=== PATIENT | female | born 1965 | race Caucasian/White ===

== ENCOUNTER → 2016-04-19 | Outpatient (CLI) | payer BC ==
[2016-04-19 10:05] LABS: CHLORIDE,CL 108 mmol/L (98-110); SODIUM,NA 140 mmol/L (136-146)
== END ==
LOC: MW.CHOBGYN 09:17
PROVIDERS: ATTEND Nurse Practitioner Women's Health
DX: M79.1 Myalgia (principal)
CPT/HCPCS: 36415; 80053; 82550

== ENCOUNTER → 2016-06-16 | Outpatient (CLI) | payer BC ==
--- NOTE | 2016-06-20 13:04 | US ---
EXAMINATION: Right upper quadrant ultrasound HISTORY: Abnormal LFTs COMPARISON: None TECHNIQUE: Grayscale and color Doppler images obtained of the right upper quadrant. FINDINGS: The visualized pancreas appears normal. The liver is normal to mildly increased in general ized echotexture. The liver contour appears normal. No hepatomegaly. The right kidney measures 10.5 cm [id number] without evidence of hydronephrosis. The common bile duct measures 6 mm. No abdominal ascites. Cholecystectomy. IMPRESSION: 1. Minimal to mild fatty infiltration of the liver.
== END ==
LOC: MW.US 09:55
PROVIDERS: ATTEND Nurse Practitioner Women's Health
DX: R94.5 Abnormal results of liver function studies (principal); R74.8 Abnormal levels of other serum enzymes
CPT/HCPCS: 36415; 76705; 76705-26; 80074; 82728; 83550

== ENCOUNTER 2016-07-25 08:04 | Emergency (ER) | payer OTHER, BC ==
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
[2016-07-25] MEDS ORDERED: Lidocaine 4% Top Soln 50 ML Bottle MUCMEM ONE (08:12)
[2016-07-25] MEDS ORDERED: Diphtheria,Pertussis(Acell),Tetanus Vaccine 0.5 ML Syringe IM ONE (08:14)
[2016-07-25 08:15] VITALS: BP 134/89
[2016-07-25] MEDS ORDERED: Lidocaine 1% 20 ML MDV INJECT ONE (08:19)
[2016-07-25] MEDS ORDERED: Bacitracin Oint 1 GM U/D Packet TOP ONE (08:36)
--- NOTE | 2016-07-25 09:14 | CR ---
EXAMINATION: Right hand, third digit HISTORY: Compression COMPARISON: None TECHNIQUE: 3 views FINDINGS/IMPRESSION: There is mild soft tissue swelling overlying the distal aspect of the third dig it without acute osseous abnormality or fracture identified. Bone mineralization and joint spaces ot herwise appear normal.
== END 2016-07-25 09:30 | disposition home or self-care (01) ==
LOC: MW.ED 08:04
DX: S61.312A Laceration without foreign body of right middle finger with damage to nail, initial encounter (principal); E78.00 Pure hypercholesterolemia, unspecified; E03.9 Hypothyroidism, unspecified; M19.90 Unspecified osteoarthritis, unspecified site; Z79.899 Other long term (current) drug therapy; Z96.659 Presence of unspecified artificial knee joint; Z98.890 Other specified postprocedural states; Z91.018 Allergy to other foods; Z91.040 Latex allergy status; W22.8XXA Striking against or struck by other objects, initial encounter
CPT/HCPCS: 12001; 73140-26-F7; 73140-F7; 90471; 90715; 99283; 99283-25

== ENCOUNTER 2017-06-30 21:27 | Emergency (ER) | payer BC ==
[2017-06-30] MEDS ORDERED: cefTRIAXone 1,000 MG in Lidocaine 1% 4 ML IM ONE (21:47)
[2017-06-30] MEDS ORDERED: HYDROmorphone 2 MG/ML SDV IM ONE (21:52)
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
[2017-06-30] MEDS ORDERED: Benzocaine 20% Topical Spray UD MUCMEM ONE (22:01)
[2017-06-30] MEDS ORDERED: Lidocaine 2% Viscous Solution 15 ML Cup PO ONE (22:01)
[2017-06-30 22:31] VITALS: BP 142/96
== END 2017-06-30 22:27 | disposition home or self-care (01) ==
LOC: MW.ED 21:27
DX: K04.7 Periapical abscess without sinus (principal); E78.00 Pure hypercholesterolemia, unspecified; E03.9 Hypothyroidism, unspecified; Z91.040 Latex allergy status; Z91.018 Allergy to other foods; Z79.899 Other long term (current) drug therapy
CPT/HCPCS: 96372; 99282; A9270; J0696; J1170; J2001

== ENCOUNTER 2020-03-01 18:54 | Emergency (ER) | payer BC ==
[2020-03-01] MEDS ORDERED: Ibuprofen 600 MG Tab PO ONE (19:07)
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
--- NOTE | 2020-03-01 20:05 | CT ---
Clinical INDICATION: Fell and hit back of head on concrete floor. Nausea. TECHNIQUE: Axial noncontrast CT cuts were performed from the skull base to the vertex. FINDINGS: There is a high right parietal scalp contusion measuring approximately of 4.0 x 1.0 cm. The calvarium is intact. There is no intracranial mass, hemorrhage infarction or contusion. There is no midline shift or transtentorial herniation. The visualized paranasal sinuses and orbits appear normal. IMPRESSION: High right parietal scalp contusion. Otherwise negative. Please note that all CT scans at this facility use dose modulation, iterative reconstruction, and/or weight-based dosing when appropriate to reduce radiation dose to as low as reasonably achievable. Dictated by Raheem Oneil MD @ Mar 01 2020 8:00PM Signed by Dr. Raheem Oneil @ Mar 01 2020 8:03PM
[2020-03-01] MEDS ORDERED: traMADol 50 MG Tab PO ONE (20:35)
[2020-03-01 20:42] VITALS: BP 140/82; PULSE 79
== END 2020-03-01 20:45 | disposition home or self-care (01) ==
LOC: MW.ED 18:54
DX: S09.90XA Unspecified injury of head, initial encounter (principal); E78.00 Pure hypercholesterolemia, unspecified; E03.9 Hypothyroidism, unspecified; Z91.018 Allergy to other foods; Z88.5 Allergy status to narcotic agent; Z91.040 Latex allergy status; Z79.899 Other long term (current) drug therapy; W22.8XXA Striking against or struck by other objects, initial encounter; Y93.51 Activity, roller skating (inline) and skateboarding; Y92.009 Unspecified place in unspecified non-institutional (private) residence as the place of occurrence of the external cause
CPT/HCPCS: 70450; 99283; A9270; 99282

== ENCOUNTER 2021-07-09 11:14 | Emergency (ER) | payer OTHER, BC ==
[2021-07-09] MEDS ORDERED: EPINEPHrine 1 MG/ML SDV IM ONE (11:22)
[2021-07-09] MEDS ORDERED: diphenhydrAMINE 50 MG/ML SDV IVPUSH ONE (11:23)
[2021-07-09] MEDS ORDERED: Famotidine 20 MG/2 ML SDV IVPUSH ONE (11:23)
[2021-07-09] MEDS ORDERED: methylPREDNISolone Sodium Succinate 125 MG/2 ML SDV IVPUSH ONE (11:23)
[2021-07-09 15:34] VITALS: BP 136/82; PULSE 104
== END 2021-07-09 15:40 | disposition home or self-care (01) ==
LOC: MW.ED 11:14
DX: T78.40XA Allergy, unspecified, initial encounter (principal); E03.9 Hypothyroidism, unspecified; E78.00 Pure hypercholesterolemia, unspecified; Z91.040 Latex allergy status; Z91.018 Allergy to other foods; Z88.5 Allergy status to narcotic agent; Z79.899 Other long term (current) drug therapy
CPT/HCPCS: 96372; 96374; 96375; 99283; J0171; J1200; J2930; J3490

== ENCOUNTER 2024-04-03 18:06 | Emergency (ER) | payer OTHER ==
[2024-04-03] MEDS: EPINEPHrine 1 MG/1 ML Amp IM ONE (18:14)
[2024-04-03] MEDS: Famotidine 20 MG/2 ML SDV IVPUSH ONE (18:17)
[2024-04-03] MEDS: diphenhydrAMINE 50 MG/ML SDV IVPUSH ONE (18:17)
[2024-04-03] MEDS: methylPREDNISolone Sodium Succinate 125 MG/2 ML SDV IVPUSH ONE (18:17)
[2024-04-03] MEDS: Sodium Chloride 0.9% 1,000 ML IV SCH (18:35)
[2024-04-03 21:53] VITALS: BP 113/83; PULSE 100
== END 2024-04-03 21:52 | disposition home or self-care (01) ==
LOC: MW.ED 18:06
DX: T78.2XXA Anaphylactic shock, unspecified, initial encounter (principal); E78.00 Pure hypercholesterolemia, unspecified; E03.9 Hypothyroidism, unspecified; Z91.018 Allergy to other foods; Z88.5 Allergy status to narcotic agent; Z91.040 Latex allergy status; Z79.890 Hormone replacement therapy; Z79.899 Other long term (current) drug therapy; Z90.49 Acquired absence of other specified parts of digestive tract
CPT/HCPCS: 71045; 96361; 96372; 96374; 96375; 99284; J0171; J1200; J2919; J7030